=== PATIENT | female | born 1980 | race Hispanic/Latino ===

== ENCOUNTER 2021-01-17 16:29 | Emergency (ER) | payer BC ==
[~2021-01-17] VITALS: Ht 160 cm; Wt 77.1 kg
[2021-01-17 16:32] VITALS: BP 161/89
[2021-01-17 17:45] LABS: APPEARANCE,URINE Clear (CLEAR); BILIRUBIN,URINE Negative (NEGATIVE); COLOR,URINE Yellow (YELLOW); GLUCOSE, URINE (UA) Negative (NEGATIVE); KETONES,URINE Negative (NEGATIVE); LEUKOCYTE ESTERASE ,URINE Small (NEGATIVE); NITRATE,URINE Positive (NEGATIVE); OCCULT BLOOD,URINE Negative (NEGATIVE); PROTEIN,URINE Negative (NEGATIVE); UROBILINOGEN,URINE 0.2 mg/dL (0.2-1.0)
[2021-01-17 17:52] LABS: BACTERIA,URINE Moderate /HPF (None Seen); RBC,URINE 0-1 /HPF (0-1); SQUAMOUS EPITHELIAL CELL,UR Few /HPF (0-2)
[2021-01-17 17:53] LABS: TRANSITIONAL EPI CELLS,URINE Rare /HPF (None Seen)
[2021-01-17] MEDS ORDERED: PHENAZOPYRIDINE HCL 200 MG TABLET ONE (18:00)
[2021-01-17] MEDS ORDERED: LIDOCAINE HCL-MPF 1% 2ML VIAL ONE (18:00)
[2021-01-17] MEDS ORDERED: CEFTRIAXONE 1G VIAL IM ONE (18:00)
[2021-01-17] MEDS ORDERED: CEFTRIAXONE 1G VIAL ONE (18:00)
[2021-01-17] MEDS ORDERED: PHENAZOPYRIDINE HCL 200 MG TABLET PO ONE (18:00)
[2021-01-17] MEDS ORDERED: FEXO180T94 PO (18:20)
[2021-01-17] MEDS ORDERED: CEPH500B PO (18:20)
[2021-01-17] MEDS ORDERED: PHEN-847 PO (18:20)
[2021-01-17] MEDS ORDERED: ALBU8.5H8 IH (18:20)
[2021-01-17] MEDS ORDERED: FLUT1DIS IH (18:20)
== END 2021-01-17 18:39 | disposition home or self-care (01) ==
LOC: EDH 16:29
DX: J40 Bronchitis, not specified as acute or chronic (principal); N39.0 Urinary tract infection, site not specified; Z20.822 Contact with and (suspected) exposure to COVID-19; E66.9 Obesity, unspecified
CPT/HCPCS: 71045; 81001; 87077; 87088; 87186; 87635; 96372; 99284; C9803; J0696; J3490

== ENCOUNTER → 2021-01-31 | Outpatient (CLI) | payer BC, OTHER ==
[~2021-01-31] MED LIST: ALBU8.5H8 IH; CEPH500B PO; FEXO180T94 PO; FLUT1DIS IH; PHEN-847 PO
== END | disposition home or self-care (01) ==
LOC: RAH 12:29
PROVIDERS: ATTEND Family Medicine
DX: R05.3 Chronic cough (principal)
CPT/HCPCS: 71250

== ENCOUNTER 2021-04-28 19:29 | Emergency (ER) | payer BC, OTHER ==
[~2021-04-28] VITALS: Ht 160 cm; Wt 79.4 kg
[2021-04-28] MEDS ORDERED: DiphenhydrAMINE HCL 50 MG/ML VIAL ONE (19:49)
[2021-04-28] MEDS ORDERED: LORAZEPAM 2 MG/ML 1 ML VIAL ONE (19:50)
[2021-04-28] MEDS ORDERED: LORAZEPAM 1 MG TABLET PO ONE (20:00)
[2021-04-28] MEDS ORDERED: ACETAMINOPHEN 500 MG TABLET PO ONE (20:00)
[2021-04-28] MEDS ORDERED: DiphenhydrAMINE HCL 50 MG/ML VIAL IM ONE (20:00)
[2021-04-28] MEDS ORDERED: CYCLOBENZAPRINE HCL 10 MG TABLET PO ONE (20:00)
[2021-04-28] MEDS ORDERED: HYDR-3421 PO (20:57)
[2021-04-28 21:00] VITALS: BP 108/56
== END 2021-04-28 21:12 | disposition home or self-care (01) ==
LOC: EDH 19:29
DX: F43.0 Acute stress reaction (principal); M54.2 Cervicalgia; R51.9 Headache, unspecified; E66.9 Obesity, unspecified; Z68.31 Body mass index [BMI] 31.0-31.9, adult; Z79.51 Long term (current) use of inhaled steroids
CPT/HCPCS: 96372 ×2; 99284; J1200; J2060